=== PATIENT | female | born 1960 | race Caucasian/White ===

== ENCOUNTER → 2016-11-22 | Outpatient (CLI) | payer OTHER ==
[~2016-11-22] MED LIST: BENADRYL 25MG C25 MG PO; EPIPEN 2-P0.3 MG/0.3 INJ; EXCEDRIN MIGRA1 EACH PO; LASIX20 MG PO; LEVOTHYROXINE100 MCG PO; MAGNESIUM400 MG PO; PREDNISONE 5 MG5 MG PO; PROZAC20 MG PO; SINGULAIR10 MG PO; TENORMIN 25 MG25 MG PO; TRAMADOL HCL50 MG PO; VITAMIN D250000 UNIT PO; ZANTAC 150 MG150 MG PO
== END ==
LOC: US 11-12 13:00
DX: E04.1 Nontoxic single thyroid nodule (principal); E03.9 Hypothyroidism, unspecified
CPT/HCPCS: 76536

== ENCOUNTER → 2020-11-29 | Outpatient (CLI) | payer MEDICARE, OTHER ==
[~2020-11-29] MED LIST changes: +ALBUTEROL2.5 MG/3 M INH; +AZITHROMYCIN250 MG PO; +BREO ELLIPTA 21 EACH INH; +DICLOFENAC SOD100 GM TP; +EXCEDRIN EXTRA1 EACH PO; +GABAPENTIN300 MG PO; +LASIX TAB 20 MG20 MG PO; +PROTONIX 40 MG40 M1 PO; +VENTOLIN HFA 66.7 GM INH
== END ==
LOC: KOH-I 09-27 16:30
DX: F17.210 Nicotine dependence, cigarettes, uncomplicated (principal); I25.10 Atherosclerotic heart disease of native coronary artery without angina pectoris; R91.1 Solitary pulmonary nodule
CPT/HCPCS: 71271

== ENCOUNTER → 2020-11-29 | Outpatient (CLI) | payer MEDICARE, OTHER | LOC: RT 12:04 | DX: M79.604 Pain in right leg (principal); R09.02 Hypoxemia | CPT/HCPCS: 36415; 36600; 82803; 85379 ==

== ENCOUNTER → 2021-03-02 | Outpatient (CLI) | payer MEDICARE, OTHER | LOC: KOH-I 08:39 | DX: M17.11 Unilateral primary osteoarthritis, right knee (principal); S83.241A Other tear of medial meniscus, current injury, right knee, initial encounter; M25.461 Effusion, right knee | CPT/HCPCS: 73721 ==

== ENCOUNTER 2021-11-15 21:34 | Inpatient (IN) | payer MEDICARE, OTHER ==
[~2021-11-15] VITALS: Ht 167.6 cm; Wt 90.7 kg
[~2021-11-15 21:34] MED LIST changes: +PREDNISONE10 MG PO; +PROAIR HFA8.5 GM INH; -VENTOLIN HFA 66.7 GM INH
[2021-11-15 22:09] LABS: HEMOGLOBIN 13.2 gm/dl (12.3-15.3); RED BLOOD COUNT 4.44 M/UL (4.00-5.10); WHITE BLOOD COUNT 21.2 K/UL (4.5-11.0)
[2021-11-16 05:11] LABS: HEMOGLOBIN 12.1 gm/dl (12.3-15.3); RED BLOOD COUNT 4.09 M/UL (4.00-5.10); WHITE BLOOD COUNT 17.3 K/UL (4.5-11.0)
[2021-11-16 05:41] LABS: BUN/CREATININE RATIO 21 (0-10)
[2021-11-16] MEDS ORDERED: PROMETHAZINE HC25 M1 PO (10:41)
[2021-11-16] MEDS ORDERED: PROZAC20 MG PO (10:44)
[2021-11-16] MEDS ORDERED: CETIRIZINE HCL10 MG PO (10:45)
[2021-11-16] MEDS ORDERED: SYMBICORT 160-1 INHA INH (10:46)
[2021-11-16] MEDS ORDERED: VITAMIN D21250 MCG PO (10:47)
[2021-11-16] MEDS ORDERED: ARTHRITIS PAIN150 GM TP (10:48)
[2021-11-17 06:40] LABS: HEMOGLOBIN 12.3 gm/dl (12.3-15.3); RED BLOOD COUNT 4.17 M/UL (4.00-5.10)
[2021-11-17 07:10] LABS: BUN/CREATININE RATIO 32 (0-10)
[2021-11-18] MEDS ORDERED: PREDNISONE 20 M20 MG PO (08:51)
[2021-11-18] MEDS ORDERED: CEFUROXIME500 MG PO (08:51)
[2021-11-18] MEDS ORDERED: DOXYCYCLINE HY100 M2 PO (08:51)
== END 2021-11-18 10:26 | disposition home or self-care (01) | DRG 193 ==
LOC: ER1 21:34 → CDU 11-16 01:38 → MED SURG 4 11-16 13:00
PROVIDERS: Internal Medicine; Physician Assistant; ADMIT Internal Medicine
DX: J18.9 Pneumonia, unspecified organism (principal); J96.01 Acute respiratory failure with hypoxia; J44.0 Chronic obstructive pulmonary disease with (acute) lower respiratory infection; C91.11 Chronic lymphocytic leukemia of B-cell type in remission; Z20.822 Contact with and (suspected) exposure to COVID-19; F17.210 Nicotine dependence, cigarettes, uncomplicated; M19.91 Primary osteoarthritis, unspecified site; E66.9 Obesity, unspecified; M79.7 Fibromyalgia; G89.29 Other chronic pain; I10 Essential (primary) hypertension; E03.9 Hypothyroidism, unspecified; J30.9 Allergic rhinitis, unspecified; Z79.899 Other long term (current) drug therapy; Z90.49 Acquired absence of other specified parts of digestive tract; Z98.51 Tubal ligation status; Z83.3 Family history of diabetes mellitus; Z79.52 Long term (current) use of systemic steroids; Z68.31 Body mass index [BMI] 31.0-31.9, adult
CPT/HCPCS: 0240U; 36600; 71045; 80048; 80053; 80061; 82550; 82553; 82803; 83036; 83605; 83735; 83880; 84100; 84484; 85025; 87040; 87081; 87880; 93005; 94640; 94664; 94760; 96374; 96375; 96376; 99285; C9113; J0696; J1650; J2920; J2930; J7070

== ENCOUNTER → 2021-12-08 | Outpatient (CLI) | payer MEDICARE, OTHER ==
[~2021-12-08] MED LIST changes: +ARTHRITIS PAIN150 GM TP; +CEFUROXIME500 MG PO; +CETIRIZINE HCL10 MG PO; +DOXYCYCLINE HY100 M2 PO; +PREDNISONE 20 M20 MG PO; +PROMETHAZINE HC25 M1 PO; +SYMBICORT 160-1 INHA INH; +VITAMIN D21250 MCG PO
== END ==
LOC: KOH-I 12:02
DX: J18.9 Pneumonia, unspecified organism (principal)
CPT/HCPCS: 71046

== ENCOUNTER → 2022-02-27 | Outpatient (CLI) | payer MEDICARE, OTHER | LOC: KOH-I 02-14 14:30 | DX: F17.210 Nicotine dependence, cigarettes, uncomplicated (principal); R91.1 Solitary pulmonary nodule | CPT/HCPCS: 71271 ==

== ENCOUNTER 2022-04-07 18:24 | Inpatient (IN) | payer MEDICARE, OTHER ==
[~2022-04-07] VITALS: Ht 167.6 cm; Wt 102.5 kg
[2022-04-07 21:40] LABS: HEMOGLOBIN 13.6 gm/dl (12.3-15.3); RED BLOOD COUNT 4.57 M/UL (4.00-5.10); WHITE BLOOD COUNT 28.7 K/UL (4.5-11.0)
[2022-04-08 02:02] LABS: HEMOGLOBIN 12.3 gm/dl (12.3-15.3); RED BLOOD COUNT 4.24 M/UL (4.00-5.10); WHITE BLOOD COUNT 22.5 K/UL (4.5-11.0)
[2022-04-08 02:24] LABS: BUN/CREATININE RATIO 25 (0-10)
[2022-04-08] MEDS ORDERED: LISINOPRIL10 MG PO (10:29)
[2022-04-08] MEDS ORDERED: FUROSEMIDE20 MG PO (10:31)
[2022-04-09 02:25] LABS: RED BLOOD COUNT 4.16 M/UL (4.00-5.10)
[2022-04-09 02:45] LABS: BUN/CREATININE RATIO 29 (0-10)
[2022-04-10 02:33] LABS: HEMOGLOBIN 12.1 gm/dl (12.3-15.3); RED BLOOD COUNT 4.17 M/UL (4.00-5.10); WHITE BLOOD COUNT 23.9 K/UL (4.5-11.0)
[2022-04-10 02:54] LABS: BUN/CREATININE RATIO 43 (0-10)
[2022-04-11 02:34] LABS: RED BLOOD COUNT 4.09 M/UL (4.00-5.10); WHITE BLOOD COUNT 23.5 K/UL (4.5-11.0)
[2022-04-11 02:57] LABS: BUN/CREATININE RATIO 43 (0-10)
[2022-04-11 10:07] LABS: BORDETELLA PARAPERTUSSIS Not Detected (Not Detectd); BORDETELLA PERTUSSIS Not Detected (Not Detectd); CHLAMYDIA PNEUMONIAE Not Detected (Not Detectd); CORONAVIRUS HKU1 Not Detected (Not Detectd); CORONAVIRUS NL63 Not Detected (Not Detectd); CORONAVIRUS OC43 Not Detected (Not Detectd); CORONOAVIRUS 229E Not Detected (Not Detectd); HUMAN METAPNEUMOVIRUS Not Detected (Not Detectd); INFLUENZA A Not Detected (Not Detectd); INFLUENZA B Not Detected (Not Detectd); MYCOPLASMA PNEUMONIAE Not Detected (Not Detectd); PARAINFLUENZA VIRUS 1 Not Detected (Not Detectd); PARAINFLUENZA VIRUS 2 Not Detected (Not Detectd); PARAINFLUENZA VIRUS 3 Not Detected (Not Detectd); PARAINFLUENZA VIRUS 4 Not Detected (Not Detectd); RESPIRATORY SYNCYTIAL VIRUS Not Detected (Not Detectd)
[2022-04-11 12:17] LABS: SARS-CoV-2 NOT DETECTED (Not Detectd)
[2022-04-11 12:18] LABS: HUMAN RHINOVIRUS/ENTEROVIRUS DETECTED (Not Detectd)
[2022-04-12 02:14] LABS: HEMOGLOBIN 12.1 gm/dl (12.3-15.3); RED BLOOD COUNT 4.07 M/UL (4.00-5.10); WHITE BLOOD COUNT 21.5 K/UL (4.5-11.0)
[2022-04-12 02:39] LABS: BUN/CREATININE RATIO 38 (0-10)
[2022-04-13 03:19] LABS: HEMOGLOBIN 12.1 gm/dl (12.3-15.3); RED BLOOD COUNT 4.2 M/UL (4.00-5.10); WHITE BLOOD COUNT 23.2 K/UL (4.5-11.0)
[2022-04-13 03:46] LABS: BUN/CREATININE RATIO 35 (0-10)
[2022-04-14 04:52] LABS: BUN/CREATININE RATIO 32 (0-10)
[2022-04-15 03:09] LABS: HEMOGLOBIN 12.5 gm/dl (12.3-15.3); RED BLOOD COUNT 4.26 M/UL (4.00-5.10); WHITE BLOOD COUNT 23.4 K/UL (4.5-11.0)
[2022-04-15 04:01] LABS: BUN/CREATININE RATIO 45 (0-10)
[2022-04-15] MEDS ORDERED: ROBITUSSIN DM UD5 ML PO (08:37)
[2022-04-15] MEDS ORDERED: MEDROL DOSEPAK 24 MG PO (08:37)
--- NOTE | 2022-04-15 13:54 | NUR ---
pt ambulated in [place] o2 drop to as low as 84 stayed around 88 on ra
== END 2022-04-15 15:24 | disposition home or self-care (01) | DRG 193 ==
LOC: ER1 18:24 → PROG CARE 22:14 → CDU 22:14 → PROG CARE 04-08 00:13 → M/S 04-12 18:16
PROVIDERS: Emergency Medicine; Internal Medicine; ADMIT Internal Medicine
DX: J12.9 Viral pneumonia, unspecified (principal); J96.01 Acute respiratory failure with hypoxia; J45.901 Unspecified asthma with (acute) exacerbation; C91.10 Chronic lymphocytic leukemia of B-cell type not having achieved remission; F11.20 Opioid dependence, uncomplicated; E87.2 Acidosis; Z20.822 Contact with and (suspected) exposure to COVID-19; J15.9 Unspecified bacterial pneumonia; B34.8 Other viral infections of unspecified site; E66.9 Obesity, unspecified; E03.9 Hypothyroidism, unspecified; F17.210 Nicotine dependence, cigarettes, uncomplicated; G89.29 Other chronic pain; M79.7 Fibromyalgia; I10 Essential (primary) hypertension; M19.90 Unspecified osteoarthritis, unspecified site; Z79.01 Long term (current) use of anticoagulants; Z79.82 Long term (current) use of aspirin; Z99.81 Dependence on supplemental oxygen; Z90.49 Acquired absence of other specified parts of digestive tract; Z98.51 Tubal ligation status; Z68.36 Body mass index [BMI] 36.0-36.9, adult; Z71.6 Tobacco abuse counseling
CPT/HCPCS: 36415; 36600; 71045; 74018; 80048; 80053; 80076; 81001; 82550; 82553; 82803; 83036; 83605; 83735; 83880; 84100; 84484; 85025; 85027; 86140; 87040; 87070; 87086; 87205; 87633; 94640; 94664; 94760; 96374; 96375; 97161; 99285; J0696; J1650; J1885; J1956; J2920; J2930; J3475; J7050; J7070; U0002